=== PATIENT | female | born 1970 | race Caucasian/White ===

== ENCOUNTER 2019-11-05 14:41 | Observation (INO) | payer BC ==
--- OUTSIDE RECORDS SUMMARY | 2019-11-05 14:44 | XMS REPORT ---
:1970 [facility] Address [address] [place] [address] Dr. Phillips [address] [place] [id number] Care Team Providers Name Role Phone Unavailable Unavailable Unavailable Problems This patient has no known problems. Allergies, Adverse Reactions, Alerts This patient has no known allergies or adverse reactions. Medications This patient has no known medications.
--- NOTE | 2019-11-05 15:10 | RAD REPORT ---
EXAM DESCRIPTION: CT - Ct Stroke Brain Wo Cont - 11/05/2019 3:03 pm CLINICAL HISTORY: NUMBNESS TO RT SIDE TODAY -- HEADACHE YESTERDAY Headache, drowsiness, CVA symptomology COMPARISON: No comparisons TECHNIQUE: All CT scans are performed using dose optimization technique as appropriate and may inclu de automated exposure control or mA/KV adjustment according to patient size. FINDINGS: No intracranial hemorrhage, hydrocephalus or extra-axial fluid collection.No areas of brai n edema or evidence of midline shift. The paranasal sinuses and mastoids are clear. The calvarium is intact. IMPRESSION: No acute intracranial abnormality. The findings were discussed with Dr. Brown in the ER On 11/05/2019 at 3:05 p.m. by telephone.
[2019-11-05] MEDS ORDERED: ASPIRIN 81 MG CHEWABLE TABLET ONE (15:18)
[2019-11-05 15:20] LABS: Basophils % 1.1 % (0-1.3); Hematocrit 48.8 % (36.0-45.0); Lymphocytes % 31.1 % (15.3-44.8); MPV 8.3 fL (7.6-11.3); RBC Red Blood Cell Count 5.43 M/uL (3.86-4.86)
[2019-11-05] MEDS ORDERED: LABETALOL 20 MG/4ML SYRINGE IV ONE (15:26)
[2019-11-05 15:28] LABS: Protime INR 0.91
[2019-11-05 15:34] LABS: Potassium 4.3 mmol/L (3.5-5.1)
[2019-11-05 16:56] LABS: ALT/SGPT 47 U/L (12-78); AST/SGOT 23 U/L (15-37); Albumin 4.4 g/dL (3.4-5.0); Alkaline Phosphatase 75 U/L (45-117); Bilirubin Direct < 0.1 mg/dL (0-0.2); Bilirubin Total 0.3 mg/dL (0.2-1.0); Magnesium 2.1 mg/dL (1.8-2.4); NT PRO-BNP 40 pg/mL (<125); Protein, Total 8.1 g/dL (6.4-8.2); Troponin (Emerg Dept Use Only) < 0.02 ng/mL (0.0-0.045)
--- NOTE | 2019-11-05 17:18 | RAD REPORT ---
EXAM DESCRIPTION: RAD - Chest Single View - 11/05/2019 4:50 pm CLINICAL HISTORY: stroke protocol Chest pain. COMPARISON: No comparisons FINDINGS: Portable technique limits examination quality. Mild interstitial pulmonary edema suspected. The heart is normal in size. No displaced fractures.
--- NOTE | 2019-11-05 17:27 | RAD REPORT ---
EXAM DESCRIPTION: US - Renal Ultrasound-Complete - 11/05/2019 4:42 pm CLINICAL HISTORY: sign htn Flank pain COMPARISON: No comparisons FINDINGS: Both kidneys are normal in size, shape and echotexture. The right kidney measures 11.2 x 5.0 x 5.0 cm. No hydronephrosis, focal mass or perinephric fluid. The left kidney measures 11.5 x 5.2 x 4.9 cm. No hydronephrosis, focal mass or perinephric fluid. 14 mm benign cyst is noted left kidney. The urinary bladder is incompletely distended without gross abnormality seen. IMPRESSION: Unremarkable renal sonogram.
--- NOTE | 2019-11-05 18:28 | EDPHYS ---
Physician Documentation [facility] Name: Aniyah Case Age: 49 yrs Sex: Female : 1970 Arrival Date: 11/05/2019 Time: 14:47 Bed 13 Private MD: Roc Dickerson C ED Physician Harley Brown HPI: 11/05 15:31 This 49 yrs old Unknown Female presents to ER via Ambulatory with complaints of snw TINGLING ON RT SIDE FACE ARM. 15:31 The patient complains of pain to the top of head and forehead. The patient describes snw the headache as a pressure. Onset: The symptoms/episode began/occurred suddenly, at 10:00. Associated signs and symptoms: Pertinent positives: paresthesias. Severity of symptoms: At its worst the pain was moderate, severe. Headache History: Denies prior headaches. The symptoms are alleviated by nothing. The patient has not experienced similar symptoms in the past. It is unknown whether or not the patient has recently seen a physician, sees Dr Dickerson. 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 - Coronavirus screen:: The patient has NOT traveled to [place], [place], or [place] in the past 14 days. - Social history:: Smoking status: Patient/guardian denies using. - Ebola Screening: : Patient negative for fever greater than or equal to 101.5 degrees Fahrenheit, and additional compatible Ebola Virus Disease symptoms Patient denies exposure to infectious person. ROS: 15:29 Constitutional: Negative for fever, chills, and weight loss, Eyes: Negative for injury, snw pain, redness, and discharge, ENT: Negative for injury, pain, and discharge, Neck: Negative for injury, pain, and swelling. 15:29 Respiratory: Negative for shortness of breath, cough, wheezing, and pleuritic chest pain, Abdomen/GI: Negative for abdominal pain, nausea, vomiting, diarrhea, and constipation, Back: Negative for injury and pain, : Negative for injury, bleeding, discharge, and swelling, MS/Extremity: Negative for injury and deformity, Skin: Negative for injury, rash, and discoloration. 15:29 Cardiovascular: Positive for chest pain, on , resolved post NTG (not pt's rx). 15:29 Neuro: Positive for headache, tingling, Negative for altered mental status, gait disturbance, loss of consciousness, visual changes, weakness. Exam: 15:22 Constitutional: This is a well developed, well nourished patient who is awake, alert, snw and in no acute distress. Head/Face: Normocephalic, atraumatic. Eyes: Pupils equal round and reactive to light, extra-ocular motions intact. Lids and lashes normal. Conjunctiva and sclera are non-icteric and not injected. Cornea within normal limits. Periorbital areas with no swelling, redness, or edema. ENT: Nares patent. No nasal discharge, no septal abnormalities noted. Tympanic membranes are normal and external auditory canals are clear. Oropharynx with no redness, swelling, or masses, exudates, or evidence of obstruction, uvula midline. Mucous membranes moist. Neck: Trachea midline, no thyromegaly or masses palpated, and no cervical lymphadenopathy. Supple, full range of motion without nuchal rigidity, or vertebral point tenderness. No Meningismus. Chest/axilla: Normal chest wall appearance and motion. Nontender with no deformity. No lesions are appreciated. Respiratory: Lungs have equal breath sounds bilaterally, clear to auscultation and percussion. No rales, rhonchi or wheezes noted. No increased work of breathing, no retractions or nasal flaring. Abdomen/GI: Soft, non-tender, with normal bowel sounds. No distension or tympany. No guarding or rebound. No evidence of tenderness throughout. Back: No spinal tenderness. No costovertebral tenderness. Full range of motion. 15:22 Skin: Warm, dry with normal turgor. Normal color with no rashes, no lesions, and no evidence of cellulitis. MS/ Extremity: Pulses equal, no cyanosis. Neurovascular intact. Full, normal range of motion. Neuro: Awake and alert, GCS 15, oriented to person, place, time, and situation. Cranial nerves II-XII grossly intact. Motor strength 5/5 in all extremities. Sensory grossly intact. Cerebellar exam normal. Normal gait. Psych: Awake, alert, with orientation to person, place and time. Behavior, mood, and affect are within normal limits. 15:22 Cardiovascular: Rate: tachycardic, Rhythm: regular, Pulses: no pulse deficits are appreciated, Heart sounds: normal. Vital Signs: 14:49 BP 210 / 126; Pulse 112; Resp 16; Temp 97.9; Pulse Ox 100% on R/A; Weight 90.72 kg; hb Height 5 ft. 7 in. (170.18 cm); Pain 8/10; 15:30 BP 138 / 87; Pulse 89; Resp 18; Pulse Ox 97% ; wh 16:30 BP 138 / 71; Pulse 97; Resp 18; Pulse Ox 97% ; wh 18:30 BP 140 / 83; Pulse 70; Resp 18; Pulse Ox 95% on R/A; wh 19:30 BP 134 / 89; Pulse 69; Resp 18; Pulse Ox 96% ; wh 14:49 Body Mass Index 31.32 (90.72 kg, 170.18 cm) hb NIH Stroke Scale Scores: 14:59 NIHSS Score: 1 snw 15:05 NIHSS Score: 0 wh [place] Coma Score: 17:15 Eye Response: spontaneous(4). Verbal Response: oriented(5). Motor Response: obeys snw commands(6). Total: 15. 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 snw 15:20 Patient medically screened. snw 17:15 Data reviewed: vital signs, nurses notes. Data interpreted: Pulse oximetry: on room air snw is 97 %. Interpretation: normal. Counseling: I had a detailed discussion with the patient and/or guardian regarding: the historical points, exam findings, and any diagnostic results supporting the discharge/admit diagnosis, the presence of at least one elevated blood pressure reading (>120/80) during this emergency department visit, lab results, radiology results, the need for further work-up and treatment in the hospital. Physician consultation: Simba Vallejo MD was called at 17:15, regarding admission. 18:27 Physician consultation: was contacted at 18:27. snw 11/05 14:57 Order name: Basic Metabolic Panel ss 11/05 14:57 Order name: CBC with Diff ss 01/25 14:57 Order name: Protime (+inr) 11/05 14:57 Order name: Ptt, Activated ss 11/05 15:13 Order name: Basic Metabolic Panel; Complete Time: 15:57 EDMS 11/05 15:13 Order name: CBC with Automated Diff; Complete Time: 15:57 EDMS 11/05 15:13 Order name: Protime (+INR); Complete Time: 15:57 ED11/05 15:13 Order name: PTT, Activated Partial Thromb; Complete Time: 15:57 EDMS 11/05 15:19 Order name: Glucose, Ancillary Testing; Complete Time: 15:20 EDDE 11/05 16:19 Order name: LFT's; Complete Time: 16:59 [facility] 11/05 16:19 Order name: Magnesium; Complete Time: 16:59 [facility] 11/05 16:19 Order name: NT PRO-BNP; Complete Time: 16:59 [facility] 11/05 16:19 Order name: Troponin (emerg Dept Use Only); Complete Time: 16:59 [facility] 11/05 14:57 Order name: Stroke CXR 1 View; Complete Time: 17:28 11/05 14:57 Order name: EKG; Complete Time: 16:02 11/05 14:57 Order name: Accucheck; Complete Time: 15:32 11/05 14:57 Order name: Cardiac monitoring; Complete Time: 15:14 11/05 14:57 Order name: EKG - Nurse/Tech; Complete Time: 15:14 11/05 14:57 Order name: IV Saline Lock; Complete Time: 15:14 11/05 14:57 Order name: Labs collected and sent; Complete Time: 15:14 11/05 14:57 Order name: NPO; Complete Time: 15:14 11/05 14:57 Order name: O2 Per Protocol; Complete Time: 15:14 11/05 14:57 Order name: O2 Sat Monitoring; Complete Time: 15:18 11/05 14:57 Order name: Stroke Swallow Screen; Complete Time: 15:18 11/05 15:01 Order name: Ct Stroke Brain Wo Cont; Complete Time: 15:17 EDDE 11/05 15:17 Order name: Misc. Order: Repeat labetolol 5mg iv post 5 min if SBP > 170; Complete snw Time: 15:53 11/05 15:18 Order name: US Rp Exam Complete; Complete Time: 17:28 snw Administered Medications: 15:30 Drug: Labetalol 5 mg {Note: BP 185/102 HR 100.} Route: IVP; Infused Over: 2 mins; Site: right antecubital; 19:43 Follow up: Response: No adverse reaction; Blood pressure is lowered 15:31 Drug: Aspirin Chewable Tablet 324 mg Route: PO; 19:43 Follow up: Response: No adverse reaction Disposition: 11/05/19 18:26 Hospitalization ordered by Roc Dickerson for Observation. Preliminary diagnosis are Hypertensive heart disease, Paresthesia of skin. - Bed requested for Telemetry/MedSurg (observation). - Status is Observation. - Condition is Stable. - Problem is new. - Symptoms have improved. UTI on Admission? No NIH Stroke Scale - NIH Stroke Score Date: 11/05/2019 Time: 14:59 Total Score = 1 1a. Level of Consciousness (LOC) - 0(Alert) 1b. Level of Consciousness (LOC) (Year \T\ Age) - 0(Both) 1c. LOC Commands (Open \T\ Closes Eyes/Bridge Maintainer) - 0(Both) 2. Best Gaze (Lateral Gaze Paresis) - 0(Normal) 3. Visual Field Loss - 0(No visual loss) 4. Facial Palsy - 0(Normal) 5a. Left Arm: Motor (10-second hold) - 0(No drift) 5b. Right Arm: Motor (10-second hold) - 0(No drift) 6a. Left Leg: Motor (5-second hold - always test supine) - 0(No drift) 6b. Right Leg: Motor (5-second hold - always test supine) - 0(No drift) 7. Limb Ataxia (finger/nose \T\ heel/wade - test with eyes open) - 0(Absent) 8. Sensory Loss (pinprick arms/legs/face) - 1(Mild to moderate loss) 9. Best Language: Aphasia (description/naming/reading) - 0(No aphasia) 10. Dysarthria (speech clarity - read or repeat words) - 0(Normal) 11. Extinction and Inattention (visual/tactile/auditory/spatial/personal) - 0(No abnormality) Initials: [facility] NIH Stroke Scale - NIH Stroke Score Date: 11/05/2019 Time: 15:05 Total Score = 0 1a. Level of Consciousness (LOC) - 0(Alert) 1b. Level of Consciousness (LOC) (Year \T\ Age) - 0(Both) 1c. LOC Commands (Open \T\ Closes Eyes/Bridge Maintainer) - 0(Both) 2. Best Gaze (Lateral Gaze Paresis) - 0(Normal) 3. Visual Field Loss - 0(No visual loss) 4. Facial Palsy - 0(Normal) 5a. Left Arm: Motor (10-second hold) - 0(No drift) 5b. Right Arm: Motor (10-second hold) - 0(No drift) 6a. Left Leg: Motor (5-second hold - always test supine) - 0(No drift) 6b. Right Leg: Motor (5-second hold - always test supine) - 0(No drift) 7. Limb Ataxia (finger/nose \T\ heel/wade - test with eyes open) - 0(Absent) 8. Sensory Loss (pinprick arms/legs/face) - 0(Normal) 9. Best Language: Aphasia (description/naming/reading) - 0(No aphasia) 10. Dysarthria (speech clarity - read or repeat words) - 0(Normal) 11. Extinction and Inattention (visual/tactile/auditory/spatial/personal) - 0(No abnormality) Initials: Addendum: 11/06/2019 21:18 Co-signature as Attending Physician, Harley Brown MD I agree with the [facility] assessment and plan of care. Signatures: Dispatcher [employer] [facility] Harley Brown MD MD [facility] Amairani Martini, STIFF STRAW HAT WASHER-C STIFF STRAW HAT WASHER-Csnw Sofie Russo RN RN ss Mai Lindquist RN RN Michelle Sorensen, Kelsie Huerta RN Corrections: (The following items were deleted from the chart) 11/05 16:06 16:02 CT-STROKE BRAIN W/O CONTRAST+CT.RAD.BRZ ordered. [facility] 19:25 18:26 Hospitalization Ordered by Roc Dickerson MD for Observation. Preliminary cg diagnosis is Hypertensive heart disease; Paresthesia of skin. Bed requested for Telemetry/MedSurg (observation). Status is Observation. Condition is Stable. Problem is new. Symptoms have improved. UTI on Admission? No. snw 19:58 19:25 11/05/2019 18:26 Hospitalization Ordered by A Jayla CRANE for Observation. wh Preliminary diagnosis is Hypertensive heart disease; Paresthesia of skin. Bed requested for Telemetry/MedSurg (observation). Status is Observation. Condition is Stable. Problem is new. Symptoms have improved. UTI on Admission? No. cg
--- NOTE | 2019-11-05 18:28 | ER ---
Nurse's Notes [facility] Name: Aniyah Case Age: 49 yrs Sex: Female : 1970 Arrival Date: 11/05/2019 Time: 14:47 Bed 13 Private MD: Roc Dickerson C Diagnosis: Hypertensive heart disease;Paresthesia of skin Presentation: 11/05 14:49 Presenting complaint: High home BP readings x 3 days. 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 14:49 Method Of Arrival: Ambulatory hb 14:50 Transition of care: patient was not received from another setting of care. hb 14:50 Onset of symptoms was November 02, 2019. Risk Assessment: Do you want to hurt yourself hb or someone else? Patient reports no desire to harm self or others. Initial Sepsis Screen: Does the patient meet any 2 criteria? No. Patient's initial sepsis screen is negative. Does the patient have a suspected source of infection? No. Patient's initial sepsis screen is negative. Care prior to arrival: None. 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 - Coronavirus screen:: The patient has NOT traveled to [place], [place], or [place] in the past 14 days. - Social history:: Smoking status: Patient/guardian denies using. - Ebola Screening: : Patient negative for fever greater than or equal to 101.5 degrees Fahrenheit, and additional compatible Ebola Virus Disease symptoms Patient denies exposure to infectious person. Screenin:00 Abuse screen: Denies threats or abuse. Denies injuries from another. Nutritional wh screening: No deficits noted. Tuberculosis screening: No symptoms or risk factors identified. Fall Risk None identified. 15:05 VAN Screening: Arm Drift: Patient shows no arm weakness. Visual Disturbance: No visual wh disturbance noted. Aphasia: No aphasia noted. Neglect: No neglect noted. Assessment: 14:53 Reassessment: CODE STROKE CALLED, PT TO CT VIA WHEELCHAIR WITH ALESHA CELAYA. hb 14:59 Reassessment: Pt to bed 13, Amairani EMERGENCY SERVICES DISPATCHER at bedside. hb 15:00 General: Appears in no apparent distress. Behavior is calm, cooperative, appropriate wh for age. Pain: Denies pain. Neuro: Level of Consciousness is awake, alert, obeys commands, Oriented to person, place, time, situation, Appropriate for age Civil Lawyer are equal bilaterally Moves all extremities. Gait is steady, Speech is normal, Facial symmetry appears normal, Pupils are PERRLA, Intact Reports tingling on face. Cardiovascular: Heart tones S1 S2 Capillary refill < 3 seconds. Respiratory: Airway is patent Respiratory effort is even, unlabored, Respiratory pattern is regular, symmetrical, Breath sounds are clear bilaterally. GI: Abdomen is flat, non-distended. : No signs and/or symptoms were reported regarding the genitourinary system. EENT: No signs and/or symptoms were reported regarding the EENT system. Derm: Skin is intact, is healthy with good turgor, Skin is pink, warm \T\ dry. normal. Musculoskeletal: Circulation, motion, and sensation intact. 15:04 Reassessment: 20g RAC, blood drawn and sent to lab [facility] stroke sticker, outside lab notified. 15:05 Reassessment: BGL 111. hb 16:00 Reassessment: Patient appears in no apparent distress at this time. No changes from previously documented assessment. Patient and/or family updated on plan of care and expected duration. Pain level reassessed. Patient is alert, oriented x 3, equal unlabored respirations, skin warm/dry/pink. Patient states feeling better. 17:01 Reassessment: Patient appears in no apparent distress at this time. No changes from previously documented assessment. Patient and/or family updated on plan of care and expected duration. Pain level reassessed. Patient is alert, oriented x 3, equal unlabored respirations, skin warm/dry/pink. Patient states feeling better. 18:20 Reassessment: Patient appears in no apparent distress at this time. No changes from previously documented assessment. Patient and/or family updated on plan of care and expected duration. Pain level reassessed. Patient is alert, oriented x 3, equal unlabored respirations, skin warm/dry/pink. Provider at bedside explaining POC need for admit. 19:39 Reassessment: Patient appears in no apparent distress at this time. No changes from previously documented assessment. Patient and/or family updated on plan of care and expected duration. Pain level reassessed. Patient is alert, oriented x 3, equal unlabored respirations, skin warm/dry/pink. Patient states feeling better. Vital Signs: 14:49 BP 210 / 126; Pulse 112; Resp 16; Temp 97.9; Pulse Ox 100% on R/A; Weight 90.72 kg; hb Height 5 ft. 7 in. (170.18 cm); Pain 8/10; 15:30 BP 138 / 87; Pulse 89; Resp 18; Pulse Ox 97% ; wh 16:30 BP 138 / 71; Pulse 97; Resp 18; Pulse Ox 97% ; wh 18:30 BP 140 / 83; Pulse 70; Resp 18; Pulse Ox 95% on R/A; wh 19:30 BP 134 / 89; Pulse 69; Resp 18; Pulse Ox 96% ; 14:49 Body Mass Index 31.32 (90.72 kg, 170.18 cm) hb [place] Coma Score: 17:15 Eye Response: spontaneous(4). Verbal Response: oriented(5). Motor Response: obeys snw commands(6). Total: 15. NIH Stroke Scale Scores: 14:59 NIHSS Score: 1 snw 15:05 NIHSS Score: 0 ED Course: 14:47 Patient arrived in ED. es 14:47 Roc Dickerson MD is Private Physician. es 14:57 Kelsie Ballesteros is Primary Nurse. 15:00 Amairani Martini [facility] snw 15:00 Harley Brown MD is Attending Physician. snw 15:00 Patient has correct armband on for positive identification. Bed in low position. Call light in reach. Side rails up X 1. color television console monitor on. Pulse ox on. NIBP on. 15:02 Ct Stroke Brain Wo Cont In Process Unspecified. EDMS 15:04 Inserted saline lock: 20 gauge in right antecubital area, using aseptic technique. hb Blood collected. 15:12 Triage completed. hb 15:12 Arm band placed on. hb 16:42 US Rp Exam Complete In Process Unspecified. EDMS 16:50 Stroke CXR 1 View In Process Unspecified. EDMS 18:24 Roc Dickerson MD is Hospitalizing Provider. snw 19:47 No provider procedures requiring assistance completed. Patient admitted, IV remains in place. Administered Medications: 15:30 Drug: Labetalol 5 mg {Note: BP 185/102 HR 100.} Route: IVP; Infused Over: 2 mins; Site: right antecubital; 19:43 Follow up: Response: No adverse reaction; Blood pressure is lowered 15:31 Drug: Aspirin Chewable Tablet 324 mg Route: PO; 19:43 Follow up: Response: No adverse reaction Outcome: 18:26 Decision to Hospitalize by Provider. snw 19:47 Admitted to Med/surg accompanied by tech, family with patient, via wheelchair, room wh 220, with chart, Report called to Migdalia Salazar RN 19:47 Condition: stable 19:47 Instructed on the need for admit. 19:58 Patient left the ED. NIH Stroke Scale - NIH Stroke Score Date: 11/05/2019 Time: 14:59 Total Score = 1 1a. Level of Consciousness (LOC) - 0(Alert) 1b. Level of Consciousness (LOC) (Year \T\ Age) - 0(Both) 1c. LOC Commands (Open \T\ Closes Eyes/Adobe Maker) - 0(Both) 2. Best Gaze (Lateral Gaze Paresis) - 0(Normal) 3. Visual Field Loss - 0(No visual loss) 4. Facial Palsy - 0(Normal) 5a. Left Arm: Motor (10-second hold) - 0(No drift) 5b. Right Arm: Motor (10-second hold) - 0(No drift) 6a. Left Leg: Motor (5-second hold - always test supine) - 0(No drift) 6b. Right Leg: Motor (5-second hold - always test supine) - 0(No drift) 7. Limb Ataxia (finger/nose \T\ heel/wade - test with eyes open) - 0(Absent) 8. Sensory Loss (pinprick arms/legs/face) - 1(Mild to moderate loss) 9. Best Language: Aphasia (description/naming/reading) - 0(No aphasia) 10. Dysarthria (speech clarity - read or repeat words) - 0(Normal) 11. Extinction and Inattention (visual/tactile/auditory/spatial/personal) - 0(No abnormality) Initials: [facility] NIH Stroke Scale - NIH Stroke Score Date: 11/05/2019 Time: 15:05 Total Score = 0 1a. Level of Consciousness (LOC) - 0(Alert) 1b. Level of Consciousness (LOC) (Year \T\ Age) - 0(Both) 1c. LOC Commands (Open \T\ Closes Eyes/Adobe Maker) - 0(Both) 2. Best Gaze (Lateral Gaze Paresis) - 0(Normal) 3. Visual Field Loss - 0(No visual loss) 4. Facial Palsy - 0(Normal) 5a. Left Arm: Motor (10-second hold) - 0(No drift) 5b. Right Arm: Motor (10-second hold) - 0(No drift) 6a. Left Leg: Motor (5-second hold - always test supine) - 0(No drift) 6b. Right Leg: Motor (5-second hold - always test supine) - 0(No drift) 7. Limb Ataxia (finger/nose \T\ heel/wade - test with eyes open) - 0(Absent) 8. Sensory Loss (pinprick arms/legs/face) - 0(Normal) 9. Best Language: Aphasia (description/naming/reading) - 0(No aphasia) 10. Dysarthria (speech clarity - read or repeat words) - 0(Normal) 11. Extinction and Inattention (visual/tactile/auditory/spatial/personal) - 0(No abnormality) Initials: Signatures: Dispatcher [employer] Amairani Nielsen, TOMASAC SAFETY TECH-CsnSandy Tomas Heather, RN RN Kelsie Ballesteros Corrections: (The following items were deleted from the chart) 15:10 14:53 BP 210 / 126; Pulse 112bpm; Resp 16bpm; Pulse Ox 100% RA; Temp 97.9F; hb 90.72 kg; Height 5 ft. 7 in.; BMI: 31.3; Pain 8/10; hb 15:12 14:49 Presenting complaint: High home BP readings x 3 days. Today home BP hb 170/114 and headache, tingling right face and right arm started 15 min NETWORK MANAGER. hb 15:13 14:59 Reassessment: Pt to bed Amairani Alonzo EMERGENCY SERVICES DISPATCHER at bedside hb hb 17:48 17:01 Reassessment: Patient appears in no apparent distress at this time. No wh changes from previously documented assessment. Patient and/or family updated on plan of care and expected duration. Pain level reassessed. Patient is alert, oriented x 3, equal unlabored respirations, skin warm/dry/pink. wh
[2019-11-05] MEDS ORDERED: ACETAMINOPHEN 500 MG TAB PO PRN (20:08)
[2019-11-05] MEDS ORDERED: METOPROLOL XL 25 MG TAB PO SCH (21:00)
[2019-11-05 21:17] VITALS: BMI 32.3
[2019-11-06 01:00] VITALS: TEMP 97.2
[2019-11-06 03:26] VITALS: O2SAT 98
[2019-11-06 05:55] LABS: Urine Appearance CLEAR; Urine Bilirubin NEGATIVE (NEG); Urine Blood NEGATIVE (NEG); Urine Color YELLOW; Urine Glucose NEGATIVE (NEG); Urine Protein NEGATIVE (NEG); Urine Specific Gravity 1.015 (1.005-1.030); Urine Urobilinogen 0.2 mg/dL (0.2-1.0); Urine pH 5.5 (5.0-7.0)
[2019-11-06 05:59] LABS: Urine Microscopic Reflex NO UMIC
[2019-11-06 06:47] LABS: Absolute Lymphocytes (CBC) 2.9 K/uL (0.7-4.9); Basophils % 0.7 % (0-1.3); Hematocrit 44.8 % (36.0-45.0); Lymphocytes % 31.6 % (15.3-44.8); MPV 8.3 fL (7.6-11.3); RBC Red Blood Cell Count 4.91 M/uL (3.86-4.86)
[2019-11-06 07:05] LABS: Potassium 4.1 mmol/L (3.5-5.1)
[2019-11-06 08:34] VITALS: BP 120/80
[2019-11-06] MEDS ORDERED: ASPIRIN EC 81 MG TAB PO SCH (09:00)
--- NOTE | 2019-11-06 09:43 | EKG ---
Test Date: 2019-11-05 Test Time: 15:13:31 Conservation Or Heritage Architect: KALA MEASUREMENT RESULTS: Intervals: Rate: 102 OK: 144 QRSD: 86 QT: 356 QTc: 463 [place]: P: 62 OK: 144 QRS: 70 T: 33 INTERPRETIVE STATEMENTS: Sinus tachycardia Otherwise normal ECG No previous ECG available for comparison Electronically Signed On 11-06-19 09:42:34 MILKING WORKER by Terrence Daniel
[2019-11-06] MEDS ORDERED: METOPROLOL XL 25 MG TAB PO ONE (10:30)
--- NOTE | 2019-11-06 21:50 | SS ---
Date of Discharge: 11/06/2019 Chief Complaint: High blood pressure, tingling, numbness. History Of Present Illness: This is a 49-year-old female patient, who has had high blood pressure in the past, but not on any medication. Her blood pressure, she checks it frequently at work and her s ystolic blood pressure is anywhere from 120 to 140, diastolic between 70 to 80. Patient reported gabrielle t this week on while she was at work, she started to have some headache and recorded her blo od pressure at work was 170/110 or so and had some chest pain with that. 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 Afte r nitroglycerin tablet, her chest pain subsided and her blood pressure came down to normal. Thursday, she felt fine and yesterday, her blood pressure started to go up again and this time, she had some ti ngling sensation on the right side of the face. She came into emergency room. After she was evaluat ed, she was admitted to the hospital. She received labetalol and metoprolol yesterday. Overnight, h er condition has remained stable. She has not had any recurrence of chest pain or tingling sensation . This morning, she is feeling much better. Allergies: TO BUPROPION, CAUSING ANXIETY AND OXYCODONE, CAUSING RASH. Home Medications: She does not take any medications at home. Past Medical History: Significant for hypertension and mixed hyperlipidemia. Past Surgical History: Cholecystectomy and arthroscopic knee surgery. Family History: Father, COPD, coronary artery disease, hypertension. Mother, lung cancer and COPD. Sister with asthma. Social History: Smokes about half pack per day and has 2 to 3 drinks on a daily basis. 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 Cardiovascular: As mentioned above. All other systems reviewed and negative. Physical Examination: Vital Signs: Her last blood pressure this morning was 120/80, pulse 68, respiratory rate 20, tempera ture 97.2, oxygen saturation 97%. Height is 5 feet 7 inches, weight 206 pounds. Her initial blood p ressure was 210/126 with pulse rate 112. This was yesterday afternoon when she came in. General: Awake, alert, oriented, not in distress. HEENT: Head atraumatic, normocephalic. Conjunctivae nonerythematous. Sclerae white. Mouth, no thr ush or edema noted. Ears/Nose, no mass, lesion, discharge noted. Neck: Supple. No JVD, lymph nodes, bruit, thyromegaly noted. Lungs: Bilateral good equal air entry. Clear to auscultation. No rhonchi. No rales. Heart: Normal heart sounds, no murmur or gallop. Abdomen: Soft, bowel sounds normal. No guarding, rigidity, tenderness, mass, hepatosplenomegaly, dis tention, or bruit noted. Extremities: No leg edema. No calf tenderness. Skin: No rash, ulcer, cellulitis. Lymphatics: No lymph node enlargement in neck, supraclavicular, infraclavicular region. Neuro: No focal neurological deficit. Chest: Unremarkable. External Genitalia: Deferred. Rectal: Deferred. Laboratory Data: Yesterday, white count 12.9, hemoglobin 16.3, platelets 286. Today, white count 9. 3, hemoglobin 14.9, platelets . Yesterday, sodium 142, potassium 4.3, chloride 108, bicarb 29, BUN 14, creatinine 1.09, glucose 98. Liver function tests unremarkable. Troponin less than 0.0 2 x3. Today, sodium 140, potassium 4.1, chloride 109, bicarb 25, BUN 14, creatinine 0.83, glucose 90 . EKG, sinus tachycardia, no acute ST-T changes. CAT scan of the brain was negative for any acute i ntracranial changes. Chest x-ray, no acute cardiopulmonary changes, except increased lung markings. Renal ultrasound was negative, except 14 mm benign cyst in the left kidney. Hospital Course: After I evaluated the patient, I determined that the patient was medically stable f or discharge and we did talk about importance to quit smoking completely and also she was advised to reduce her alcohol intake to 1 glass of red wine a day and that is 4-ounce glass. She prefers to see school office manager in [place], Dr. Fonseca and she was advised to follow up with him on outpatient basis. Discharge Medications/instructions: 1.Take metoprolol succinate 25 mg 1 tablet by mouth daily in morning. Take amlodipine 5 mg 1 tablet by mouth daily in evening. Patient to check blood pressure 3 to 4 times a day and if the systolic b lood pressure is higher than 140, then she may use second dose of the amlodipine 5 mg at that time fo r that particular day. 2.Follow up at my office on 11/10/2019 and patient to call for appointment. 3.Patient to follow up with the school office manager in next 2 weeks. Final Diagnoses: 1.Hypertensive emergency, resolved. 2.Mixed hyperlipidemia. 3.Smoking. CHAYA/MODL Voice ID: [id number] Report ID: [id number]
== END 2019-11-06 10:59 | disposition home or self-care (01) ==
LOC: ER 14:41 → ERHOLD 18:28 → 2ND 19:46
PROVIDERS: ADMIT Internal Medicine; ATTEND Internal Medicine
DX: I16.1 Hypertensive emergency (principal); E78.2 Mixed hyperlipidemia; F17.210 Nicotine dependence, cigarettes, uncomplicated
CPT/HCPCS: 36415; 70450; 71045; 76770; 80048; 80076; 81003; 82947; 83735; 83880; 84484; 85025; 85610; 85730; 93005; 96374; 99285; G0378

== ENCOUNTER 2019-11-17 12:21 | Observation (INO) | payer BC ==
--- OUTSIDE RECORDS SUMMARY | 2019-11-17 12:29 | XMS REPORT ---
:1970 [facility] Address [address] [place] [address] Dr. Phillips [address] [place] [id number] Care Team Providers Name Role Phone Unavailable Unavailable Unavailable Problems This patient has no known problems. Allergies, Adverse Reactions, Alerts This patient has no known allergies or adverse reactions. Medications This patient has no known medications.
[2019-11-17] MEDS ORDERED: ASPIRIN EC 81 MG TAB PO ONE (12:32)
[2019-11-17] MEDS ORDERED: ENOXAPARIN 80 MG/0.8 ML SQ ONE (12:32)
[2019-11-17 13:00] LABS: Absolute Lymphocytes (CBC) 3.1 K/uL (0.7-4.9); Basophils % 1.1 % (0-1.3); Hematocrit 48.1 % (36.0-45.0); Lymphocytes % 29.1 % (15.3-44.8); MPV 8.3 fL (7.6-11.3)
[2019-11-17] MEDS ORDERED: LOSARTAN/HCTZ 50-12.5 PO ONE (13:00)
[2019-11-17 13:19] LABS: ALT/SGPT 47 U/L (12-78); AST/SGOT 22 U/L (15-37); Albumin 4.2 g/dL (3.4-5.0); Alkaline Phosphatase 67 U/L (45-117); BUN Blood Urea Nitrogen 12 mg/dL (7-18); Bicarbonate 28 mmol/L (21-32); Bilirubin Total 0.3 mg/dL (0.2-1.0); CKMB Creatine Kinase MB 3.5 ng/mL (0.3-3.6); Creatine Phosphokinase 184 U/L (26-192); Glucose Level 90 mg/dL (74-106); Magnesium 2.1 mg/dL (1.8-2.4); Potassium 3.8 mmol/L (3.5-5.1); Protein, Total 8.1 g/dL (6.4-8.2); Sodium Level 141 mmol/L (136-145); Troponin I < 0.02 ng/mL (0.0-0.045)
[2019-11-17 13:53] VITALS: BMI 32.5
[2019-11-17] MEDS ORDERED: POTASSIUM CL SA 10 MEQ TAB PO ONE (16:00)
[2019-11-17] MEDS ORDERED: AMLODIPINE 10 MG TAB PO SCH (21:00)
--- NOTE | 2019-11-17 21:33 | CON ---
History Of Present Illness: Ms. Diehl is 49. For several weeks, she has been aware that her blood pr essure is high. She is also having chest pain that radiates to the jaw, neck, not necessarily exerti onal. Most of the spells occur at rest. Several medications have been tried, but her present blood pressure control is suboptimal. She has been on amlodipine 10 and metoprolol 50. No previous histor y of myocardial infarction, stroke, diabetes, or hypertension before the past 2 weeks. No vascular s urgery. She is multigravid. She has had gallbladder surgery. She reports drug allergies to include bupropion and oxycodone. She is a regular cigarette smoker, but agrees that she needs to quit. Physical Examination: General: She is 5 feet 7 inches, 208 pounds. Blood pressure 162/98, pulse 76. HEENT: Normal carotids, no bruit. Lungs: Clear. Cardiac: Normal. Abdomen: Soft. Extremities: Normal. Diagnostic Studies: Electrocardiogram dated November 05, 2019, showed sinus tachycardia, otherwise it is normal. Plan: I think the patient should have a pharmacologic nuclear stress test tomorrow. Her echocardiog colby is normal and we will see if we have any reason to investigate further with a cardiac catheteriza tion after that. SHAY/JOSE Voice ID: [id number] Report ID: [id number]
[2019-11-18 02:02] VITALS: O2SAT 98
--- NOTE | 2019-11-18 04:31 | HP ---
Date of Admission: 11/17/2019 Chief Complaint: High blood pressure and neck pain. History Of Present Illness: This is a 49-year-old very pleasant female patient who recently got started on antihypertensive medication for high blood pressure problem and we have made adjustment on her antihypertensive medication within last week or so. Her blood pressure is better than before, but still higher than normal. So today, when she came into office to talk to me about her blood pressure, she informed me that she is just not feeling good lately, and today, while she was at work, she started to have some pain in her neck, describing more like tightness type of discomfort in her neck, associated with high blood pressure, and she was sent home from work, and she came to office to talk to me. After I talked to her, decision was made to admit her to hospital for further cardiac workup. She denies any heaviness pressure type of feeling in her chest. No shortness of breath. No sweating. No tingling, numbness of hands. Allergies: BUPROPION CAUSING ANXIETY AND OXYCODONE CAUSING RASH. Medications: Amlodipine 10 mg at bedtime, metoprolol succinate 50 mg p.o. daily in the morning. Review of Systems: Cardiovascular: As mentioned above. All other systems reviewed and negative. Family History: Father had COPD, coronary artery disease, hypertension. Mother , lung cancer, COPD. Sister with asthma. Social History: Positive for smoking and uses 2-3 drinks daily. Past Surgical History: Cholecystectomy, arthroscopic knee surgery. Past Medical History: Hypertension, mixed hyperlipidemia. Physical Examination: Vital Signs: Pulse 76, blood pressure 162/98, oxygen saturation 100%, height 5 feet 7 inches, weight 208 pounds. General: Awake, alert, oriented, not in distress. HEENT: Head atraumatic, normocephalic. Conjunctivae nonerythematous. Sclerae white. Mouth, no thrush or edema noted. Ears/Nose, no mass, lesion, discharge noted. Neck: Supple. No JVD, lymph nodes, bruit, thyromegaly noted. Lungs: Bilateral good equal air entry. Clear to auscultation. No rhonchi. No rales. Heart: Normal heart sounds, no murmur or gallop. Abdomen: Soft, bowel sounds normal. No guarding, rigidity, tenderness, mass, hepatosplenomegaly, distention, or bruit noted. Extremities: No leg edema. No calf tenderness. Skin: No rash, ulcer, cellulitis. Lymphatics: No lymph node enlargement in neck, supraclavicular, infraclavicular region. Neuro: No focal neurological deficit. Chest: Unremarkable. External Genitalia: Deferred. Rectal: Deferred. Laboratory Data: White count 10.7, hemoglobin 15.8, platelets 267. Sodium 141 , potassium 3.8, chloride 107, bicarb 28, BUN 12, creatinine 0.84, glucose 90. Liver function tests unremarkable. Troponin less than 0.02. Prior chest x-ray from about a week to 10 days ago, no acute cardiopulmonary changes. Impression: 1. Atypical angina. 2. Hypertension. 3. Mixed hyperlipidemia. Plan: Admit patient to hospital for further evaluation and management of this problem. Patient is appropriate for observation. Consult Cardiology. Home medications will be continued per order. We will start her on losartan/HCT 50/ 12.5 mg p.o. daily. First dose was ordered to be given soon after admission. We will give aspirin, Lovenox per order, and tomorrow morning, patient will have stress test, and I will see her tomorrow for followup. Details and plan of treatment discussed with her. CHAYA/MODL Voice ID: [id number]
[2019-11-18] MEDS ORDERED: REGADENOSON 0.4 MG/5 ML SYR IV ONE (07:40)
--- NOTE | 2019-11-18 08:02 | ECHO ---
HEIGHT: 5 ft 7 in WEIGHT: 208 lb 0 oz DATE OF STUDY: 11/17/[address]: Jules Dickerson MD 2-DIMENSIONAL: YES M.MODE: YES DOPPLER: YES COLOR FLOW: YES TDS: PORTABLE: DEFINITY: BUBBLE STUDY: DIAGNOSIS: ANGINA CARDIAC HISTORY: CATHERIZATION: NO SURGERY: NO PROSTHETIC VALVE: NO PACEMAKER: NO MEASUREMENTS (cm) DIASTOLIC (NORMALS) SYSTOLIC (NORMALS) IVSd 1.0 (0.6-1.2) LA Diam 3.2 (1.9-4.0) LVEF 67% LVIDd 3.7 (3.5-5.7) LVIDs 2.4 (2.0-3.5) %FS 36% LVPWd 1.1 (0.6-1.2) Ao Diam 2.5 (2.0-3.7) 2 DIMENSIONAL ASSESSMENT: RIGHT ATRIUM: NORMAL LEFT ATRIUM: NORMAL RIGHT VENTRICLE: NORMAL LEFT VENTRICLE: NORMAL TRICUSPID VALVE: NORMAL MITRAL VALVE: NORMAL PULMONIC VALVE: NORMAL AORTIC VALVE: NORMAL PERICARDIAL EFFUSION: NONE AORTIC ROOT: NORMAL LEFT VENTRICULAR WALL MOTION: NORMAL DOPPLER/COLOR FLOW: NORMAL COMMENTS: NORMAL 2-DIMENSIONAL ECHOCARDIOGRAM WITH DOPPLER. TECHNOLOGIST: IWONA CALDERON
--- NOTE | 2019-11-18 08:45 | EKG ---
Test Date: 2019-11-17 Test Time: 12:56:51 Spiral Machine Operator: SHARYN MEASUREMENT RESULTS: Intervals: Rate: 73 [place]: 152 QRSD: 90 QT: 404 QTc: 445 [place]: P: 26 [place]: 152 QRS: 38 T: 22 INTERPRETIVE STATEMENTS: Normal sinus rhythm Normal ECG Compared to ECG 11/05/2019 15:13:31 Sinus tachycardia no longer present Electronically Signed On 11-18-19 08:44:55 PROCESS ASSISTANT by Terrence Daniel
[2019-11-18] MEDS ORDERED: ASPIRIN EC 81 MG TAB PO SCH (09:00)
[2019-11-18 10:06] VITALS: TEMP 97.7
--- NOTE | 2019-11-18 10:32 | RAD REPORT ---
EXAM DESCRIPTION: NM - Rest Stress Cardiac Imaging - 11/18/2019 10:08 am CLINICAL HISTORY: Chest pain COMPARISON: None. TECHNIQUE: The patient was administered 10.2 mCi of Tc 99m Sestamibi prior to resting SPECT imaging of the heart. The patient was then administered 30.8 mCi of Tc 99m Sestamibi following exercise or ph armacologic stress. Multiplanar SPECT images were reviewed. FINDINGS: The end diastolic volume is 93 ml, the end systolic volume is 35 ml, and the ejection frac tion is 62 %. No stress-induced ischemic changes identifiable. Diminished activity anterior wall near the septum is not clearly different between rest and stress sequencing. This is probably breast attenuation artifa ct rather than scarring. No other areas of fixed defect identifiable. IMPRESSION: No stress-induced ischemic change. Small focus of diminished activity anterior wall near the apex does not change between rest and stres s imaging. This is favored to be breast attenuation artifact rather than scarring. Ventricular volumes and ejection fraction are within normal range.
--- NOTE | 2019-11-18 14:15 | TREADPHA ---
DX: CHEST PAIN Date of Study: 11/18/2019 Ht: 5 7 Wt: 208 lb 0 oz Consulting Physician: ANJUM MEDICATIONS: NORVASC, ASPIRIN, LOPRESSOR, LOSARTAN HISTORY: 49 YEAR OLD FEMALE WITH HISTORY OF HYPERTENSION, POSITIVE SMOKER. ADMITTED FOR RIGHT NECK AND JAW PAIN. PATIENT DENIES PAIN AT TIME OF TESTING. PHYSICIAL EXAMINATION: RESTING B.P.: 152/84 RESTING H.R.: 65 RESTING EKG: NORMAL PROTOCOL: PHARMACOLOGIC EXERCISE TIME: 3:30 B.P. AT PEAK STRESS: IMPRESSION: LEXISCAN STRESS TEST PERFORMED. CARDIOLITE INJECTED PER PROTOCOL. NOSUPRAVENTRICULAR TACHYCARDIA, NO VENTRICULAR TACHYCARDIA, NO ARRHYTHMIA NOTED. TOLERATED WELL. PLEASE SEE NUCLEAR MEDICINE REPORT. NON-DIAGNOSTIC ELECTROCARDIOGRAM WITH LEXISCAN STRESS.
[2019-11-18 14:16] VITALS: BP 128/86
--- NOTE | 2019-11-18 16:26 | RAD REPORT ---
EXAM DESCRIPTION: US - Abdomen Pelvis Scan US - 11/18/2019 3:54 pm CLINICAL HISTORY: High blood pressure N COMPARISON: Renal Ultrasound-Complete dated 11/05/2019; Rest Stress Cardiac Imaging dated 11/18/2019 FINDINGS: The bilateral kidneys are normal in size, the right measuring 11.2 x 5.0 x 4.5 cm and the left measuring 11.1 x 4.9 x 4.9 cm. Aortic velocity: 97 cm/second Right proximal renal artery: 170 cm/second Right mid renal artery: 99 cm/second Right distal renal artery: 74 cm/second Right renal arcuate artery resistive index: 0.6 Right renal artery / aorta ratio: 1.7 Left proximal renal artery: 293 cm/second Left mid renal artery: 153 cm/second Left distal renal artery: 75 cm/second Left renal arcuate artery resistive index: 0.6 Left renal artery/aorta ratio: 3.0 IMPRESSION: Findings are most compatible with left sided proximal renal artery stenosis.
--- NOTE | 2019-12-01 00:32 | DS ---
Date of Discharge: 11/18/2019 Disposition: Discharged to go home. Physical Examination: HEENT: Unremarkable. Lungs: Clear to auscultation. Heart: Heart sounds normal. Abdomen: Soft, bowel sounds normal. No guarding, rigidity, tenderness, or distention. Extremities: No leg edema. Hospital Course: This is a 49-year-old very pleasant female patient who was admitted to the hospital with high blood pressure and neck pain problem. Please see dictated H and P for more information. Patient came into office with these concerns and after I saw her, decision was made to admit her to [facility]. I was concerned about atypical angina the way she presented to the office. After she w as admitted to the hospital, cardiac enzymes came back negative. Blood work was unremarkable. Cardi ology consultation was obtained and her home medications were continued. We did add losartan/hydroch lorothiazide. Her blood pressure remained normal during this hospitalization after adding this extra medication. Echocardiogram was done, which showed normal ejection fraction, normal echocardiogram. Lexiscan stress test came back negative for stress-induced ischemia. She has not had any problem wi th her blood pressure up until fairly recently, so I did order a renal artery Doppler on her and her renal artery Doppler came back abnormal showing evidence of left renal artery stenosis in the proxima l area. All these findings were discussed with the patient and I have advised her to follow up with metal dresser and I will refer her to metal dresser on an outpatient basis to be seen as soon as fredy richmond for further evaluation and management of this left renal artery stenosis. Final Diagnoses: 1.Atypical angina. 2.Hypertension. 3.Mixed hyperlipidemia. 4.Left renal artery stenosis. Discharge Medications And Instructions: Continue prior home medications as below, 1.Metoprolol succinate 50 mg 1 tablet p.o. daily in morning. 2.Losartan/hydrochlorothiazide 50/12.5 mg 1 tablet p.o. daily in morning. 3.Amlodipine 10 mg 1 tablet daily in evening. 4.Follow up at my office this month as per scheduled appointment. CHAYA/MODL Voice ID: [id number] Report ID: [id number]
== END 2019-11-18 16:31 | disposition home or self-care (01) ==
LOC: 2ND 12:25
PROVIDERS: ADMIT Internal Medicine; ATTEND Internal Medicine
DX: I20.9 Angina pectoris, unspecified (principal); I10 Essential (primary) hypertension; E78.2 Mixed hyperlipidemia; I70.1 Atherosclerosis of renal artery
CPT/HCPCS: 93005; 93017; 93306; 85025; 80048; 36415; 83735; 82550; 84484; 82553; 80053; 93975; 78452; J1650; J2785; A9500; G0379; G0378 ×3

== ENCOUNTER 2019-12-14 11:27 | Inpatient (IN) | payer BC ==
--- OUTSIDE RECORDS SUMMARY | 2019-12-14 11:29 | XMS REPORT ---
:1970 [facility] Address [address] [place] [address] Dr. Phillips [address] [place] [id number] Care Team Providers Name Role Phone Unavailable Unavailable Unavailable Problems This patient has no known problems. Allergies, Adverse Reactions, Alerts This patient has no known allergies or adverse reactions. Medications This patient has no known medications.
[2019-12-14 12:40] LABS: Absolute Lymphocytes (CBC) 2.7 K/uL (0.7-4.9); Basophils % 0.7 % (0-1.3); MPV 8.2 fL (7.6-11.3)
[2019-12-14 12:55] LABS: Albumin 4.1 g/dL (3.4-5.0); Bilirubin Total 0.5 mg/dL (0.2-1.0); Magnesium 1.8 mg/dL (1.8-2.4); Potassium 3.7 mmol/L (3.5-5.1)
[2019-12-14 13:51] LABS: Urine Appearance CLEAR; Urine Bilirubin NEGATIVE (NEG); Urine Blood NEGATIVE (NEG); Urine Color YELLOW; Urine Glucose NEGATIVE (NEG); Urine Protein NEGATIVE (NEG); Urine Specific Gravity <=1.005 (1.005-1.030); Urine Urobilinogen 0.2 mg/dL (0.2-1.0)
[2019-12-14] MEDS ORDERED: VANCOMYCIN/NS 1 gm 1 GM/250 ML BAG IVPB SCH (14:15)
[2019-12-14 14:22] LABS: Urine Bacteria <20 /HPF (<20); Urine Culture Reflex Order NOT NEEDED; Urine RBC <5 /HPF (NONE SEEN)
[2019-12-14] MEDS: MORPHINE 2 MG/ML SYR IV PRN ×2 (15:24→19:24)
[2019-12-14] MEDS: PIPER/TAZO/NS 3.375gm 3.375 GM/100 ML BAG IVPB SCH (15:28)
[2019-12-14] MEDS: VANCOMYCIN 1.75 GM in NA CHLORIDE 0.9% 500 ML IVPB SCH (15:29)
--- NOTE | 2019-12-14 16:16 | RAD REPORT ---
EXAM DESCRIPTION: CT - Abdomen Pelvis W Contrast - 12/14/2019 3:03 pm CLINICAL HISTORY: Abdominal pain. COMPARISON: None. TECHNIQUE: Computed axial tomography of the abdomen and pelvis was obtained. 100 cc Isovue-300 is ad ministered intravenously. Oral contrast was given. All CT scans are performed using dose optimization technique as appropriate and may include automated exposure control or mA/KV adjustment according to patient size. FINDINGS: The liver, spleen, pancreas, adrenals and kidneys appear unremarkable. Cholecystectomy There is no evidence of diverticulitis Mild to moderate anterior subluxation of L3 on L4 3 centimeter low-density mass within enhancing remote abuts the anus. IMPRESSION: 3 centimeter perianal abscess
[2019-12-14] MEDS ORDERED: POTASSIUM CL SA 10 MEQ TAB PO ONE (21:00)
--- NOTE | 2019-12-14 21:46 | CON ---
Date of Consultation: 12/14/2019 Reason For Consultation: Perineal pain, possible abscess. Consulting Physician: Jules Dickerson MD. History Of Present Illness: The patient is a 49-year-old, known to our practice when she came for a well-woman exam about 15 or 18 months ago. Reports that she started to have perineal pain about 3 to 4 days ago, worsened over the past 24 hours since last night. She noted that her pain had gotten mu ch worse and started to have fever and chills. She was seen by Dr. Dickerson in the office today who susp ected perianal or perirectal perineal abscess and consulted me. Denies having any discharge either v aginally. Never had history of any abscesses in the rectal area or the perianal or vulvar areas. No history of any diabetes. She does not report being on her period at this time. No nausea or vomiti ng. History of constipation and hard stools recently. She does recollect having a very hard stool a ssociated with pain in the recent past and since then bowel movements have been harder. In the past she has always had softer bowel movements and never had a history of constipation. She also gives history of some pain medication intake due to all of her recent procedures for her [place] al artery stenosis. Past Medical History: Significant for hypertension and mixed hyperlipidemia, hypertension secondary to renal artery stenosis. Past Surgical History: Cholecystectomy, arthroscopic knee surgery, and bilateral renal artery stent placement. Personal History: She is a smoker and moderate alcohol use on a daily basis. Allergies: WELLBUTRIN AND OXYCODONE, WHICH CAUSE RASH. Medications: The medications that the patient currently is on; she is on antihypertensives, most lik kristina amlodipine. She is on blood thinner. Her current home medications are Plavix, aspirin, hydrochl orothiazide, losartan, and also on amlodipine. She is on atorvastatin and metoprolol. The Plavix is 75 mg and aspirin 81 mg. currently in the hospital, she is on Zosyn and vancomycin. She is on morp lorin for pain and ondansetron for nausea. Review of Systems: As above. No shortness of breath, cough, chest pain. No headaches. Physical Examination: General: No current distress. Vital Signs: 97.1, 69, 129/71, 97% on room air. Her pain level about 7. She is afebrile. Head and Neck: Unremarkable. No thyromegaly. No jugular venous distention. Heart: Regular in rate and rhythm. Lungs: Clear to auscultation. Abdomen: Soft, nondistended, nontender. No hepatosplenomegaly. Extremities: No edema or calf tenderness. Pelvic: No inguinal lymphadenopathy. I did not palpate any tender lymph nodes on pelvic exam. Labi al appeared to be unremarkable. Perineal area slightly erythematous and edema noted. Perianal and p erirectal area unremarkable. Bartholin's gland on the left completely unremarkable, on the right sli ghtly tender, however, no enlargement bilaterally. Periurethral gland, [place]'s glands all negative a nd normal. Vaginal canal completely unremarkable. No drainage. I was unable to examine her complet kristina in the upper genital tract because she had a lot of tenderness during the exam. Perineal area wa s tender, especially to the right. On rectovaginal exam, there was tenderness significantly in the d istal 1/3 of the rectovaginal septum between the anal canal and the vaginal epithelium. In this rect ovaginal space there was a tender area about 2 cm that was indurated and appeared to be slightly fluc tuant, but nothing that I could palpate in the perineal area. This did not appear to extend into the perineal area. No masses were palpable in the distal anal canal as far as I could reach to do the e xam. Laboratory Data: Her white count was 15.8, left-shift, absolute neutrophils 11.2. Her BMP was galileo l. Albumin, globulin, LFTs unremarkable. Her creatinine level 0.91. Imaging: On CT scan, the report showed a 3 cm perianal abscess and on examination of the images, the re was hypodense area consistent with well-defined abscess about 3 cm anterior to the anal canal and posterior to the vaginal canal, very low. Assessment And Plan: 1.Fever most likely from her perianal abscess. 2.Perianal abscess. From my standpoint this is something that is very small. Patient on a blood th inner and probably she definitely needs IV antibiotics at this time. I would continue Zosyn and vanc omycin as started by Dr. Dickerson. She needs a General Surgery consult to discuss the route of access ei ther by transrectal drainage or transvaginal drainage. I would prefer a transrectal route if this is possible as this appears to be much closer to the rectal wall or anal canal wall than to the vaginal lining and the opening it into the vagina can increase the risk of rectovaginal fistula. 3.Constipation. I would start the patient on 2 stool softeners b.i.d. and Metamucil to prevent any further worsening of her pain, possibly could have any anal fissure. 4.Renal artery stenosis and hypertension. She is on 2 blood thinners, baby aspirin and Plavix, whic h are extremely essential for the patient to continue to stay on per Dr. Dickerson as her bilateral renal stents are only 2 weeks old. I would recommend that she has consultation from General Surgery. Linda ent requested Dr. Key. Discussed the plan with Dr. Dickerson and we will reach out to General Surger y to get their input it and plan on treatment. Patient will continue to stay n.p.o. with her IV anti biotics and CBC in the morning. MAEVE/JOSE Voice ID: [id number] Report ID: [id number]
[2019-12-14] MEDS: CODEINE 30MG/APAP 300MG TAB PO PRN (22:11)
[2019-12-14] MEDS: ATORVASTATIN 20 MG TAB PO SCH (22:12)
[2019-12-14] MEDS: AMLODIPINE 10 MG TAB PO SCH (22:12)
[2019-12-14] MEDS: METOPROLOL XL 50 MG TAB PO SCH (22:12)
[2019-12-15] MEDS: PIPER/TAZO/NS 3.375gm 3.375 GM/100 ML BAG IVPB SCH ×3 (00:38→17:11)
[2019-12-15] MEDS: MORPHINE 2 MG/ML SYR IV PRN ×2 (00:38→04:56)
--- NOTE | 2019-12-15 02:50 | HP ---
Date of Admission: 12/14/2019 Chief Complaint: Fever and pain. History Of Present Illness: This is a 49-year-old very pleasant female patient who was doing fine until 3 days ago and she started to have this painful swelling in her perineal region and has been having intermittent fever with this pain. Her symptoms got worse over the period of last 3 days. Today, she went to work. Her called office and we received this message. She was asked to come in to see me. After I evaluated her, decision was made to admit her to the hospital with perineal abscess. Denies any nausea or vomiting. No discharge. No bleeding. Allergies: TO BUPROPION CAUSING ANXIETY PROBLEM AND OXYCODONE CAUSING RASH. Medications: Amlodipine 10 mg daily in the evening, aspirin 81 mg daily, clopidogrel 75 mg p.o. daily, atorvastatin 20 mg p.o. daily, losartan/HCTZ 50/ 12.5 one tablet by mouth daily in the morning, metoprolol succinate 50 mg p.o. 2 times a day. Review of Systems: Constitutional: As mentioned above. GI: As mentioned above. Genitourinary: As mentioned above. All other systems reviewed and negative. Past Medical History: Significant for hypertension, mixed hyperlipidemia, renal artery stenosis. Past Surgical History: The patient had bilateral renal artery stent placed on November 30, 2019 and in the past she had cholecystectomy and knee surgery. Family History: Father: COPD, coronary artery disease, hypertension. Mother: Lung cancer and COPD. Sister with asthma. Social History: She used to smoke, but as of about 2 weeks ago she quit smoking. Use of alcohol occasional. Physical Examination: Vital Signs: At office today, when she came in, blood pressure 133/86, temperature 98.1, pulse 86, respiratory rate 15, weight 209 pounds, height 67 inches. General: Awake, alert, oriented, not in distress. HEENT: Head atraumatic, normocephalic. Conjunctivae nonerythematous. Sclerae white. Mouth, no thrush or edema noted. Ears/Nose, no mass, lesion, discharge noted. Neck: Supple. No JVD, lymph nodes, bruit, thyromegaly noted. Lungs: Bilateral good equal air entry. Clear to auscultation. No rhonchi. No rales. Heart: Normal heart sounds, no murmur or gallop. Abdomen: Patient has significant right lower quadrant tenderness, otherwise abdomen is soft. Bowel sounds normoactive. No distention. No hepatosplenomegaly. No bruit. Extremities: No leg edema. No calf tenderness. Skin: No rash, ulcer, cellulitis. Lymphatics: No lymph node enlargement in neck, supraclavicular, infraclavicular region. Neuro: No focal neurological deficit. Chest: Unremarkable. External Genitalia: The exam was performed in presence of office staff and it revealed approximately 3 cm swollen, very tender area between the posterior vaginal wall and rectum and the perineum region. There was no discharge, no bleeding. Right labia majora was mildly swollen. Rectal: Deferred. Laboratory Data: White count 15.8, hemoglobin 14.1. Sodium 137, potassium 3.7 , chloride 101, bicarb 29, BUN 14, creatinine 0.91, glucose 92. Liver function tests unremarkable. Procalcitonin less than 0.05. CAT scan of the abdomen and pelvis shows approximately 3 cm perianal abscess. Impression: 1. Perineal abscess. 2. Renal artery stenosis, bilateral, status post renal artery stent. 3. Mixed hyperlipidemia. 4. Hypertension. Plan: Admit patient to the hospital for further evaluation and management of this problem. Patient is appropriate for inpatient and is expected to spend 2 midnights in the hospital. We will go ahead and continue home medications per order. Give pain medications per order. Empiric IV antibiotics, vancomycin and Zosyn will be started. 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 Nicolas, I did discuss details with her before admission and after she evaluated her and she has not recommended any open drainage type of procedure and General Surgery consultation was requested from Dr. Key to see if we can perform any percutaneous drainage and Dr. Nicolas has discussed details with Dr. Key. I will keep her n.p.o. after midnight. I will see her tomorrow morning. CHAYA/MODL Voice ID: [id number]
[2019-12-15 05:56] LABS: Potassium 4.3 mmol/L (3.5-5.1)
[2019-12-15] MEDS: CODEINE 30MG/APAP 300MG TAB PO PRN (07:08)
[2019-12-15] MEDS: CLOPIDOGREL 75 MG TABLET PO SCH ×2 (09:00→21:23)
[2019-12-15] MEDS: ASPIRIN EC 81 MG TAB PO SCH ×2 (09:00→21:23)
[2019-12-15] MEDS: METOPROLOL XL 50 MG TAB PO SCH ×2 (09:00→21:23)
[2019-12-15] MEDS: LOSARTAN/HCTZ 50-12.5 PO SCH (09:00)
[2019-12-15] MEDS: VANCOMYCIN 1.75 GM in NA CHLORIDE 0.9% 500 ML IVPB SCH (09:39)
[2019-12-15] MEDS: D5 0.9 NS 1,000 ML IV SCH ×2 (09:39→21:13)
[2019-12-15] MEDS ORDERED: LIDOCAINE 2% MPF 5 ML VIAL ONE (09:49)
[2019-12-15] MEDS ORDERED: MIDAZOLAM HCL 2 MG/2 ML INJ ONE (09:49)
[2019-12-15] MEDS ORDERED: dexAMETHasone 10 MG/ML VIAL ONE (09:49)
[2019-12-15] MEDS ORDERED: FENTANYL CITR 100 MCG/2 ML ONE (09:49)
[2019-12-15] MEDS ORDERED: propofoL 200 MG/20 ML VIAL IV ONE (09:49)
[2019-12-15] MEDS ORDERED: Ringers Lactate 1,000 ML IV ONE (10:07)
[2019-12-15] MEDS ORDERED: BUPIVACAINE 0.25% PF 10 ML VIAL ONE (10:13)
[2019-12-15] MEDS ORDERED: KETOROLAC 30 MG/ML INJ ONE (10:59)
--- NOTE | 2019-12-15 11:05 | P.BOP ---
Preoperative diagnosis: Perineal abscess Postoperative diagnosis: same plus Perianal fissure Primary procedure: EUA, Anoscopy, Rigid proctoscopy, Incision and drainage of PERINEAL ABSCESS Secondary procedure: Incisional biopsy of PERIANAL fissure Estimated blood loss: <10cc Specimen: anterior PERINEAL abscess, anterolateral PERINEAl fissure Findings: pus Anesthesia: General Complications: None Transferred to: Recovery Room Condition: Good
--- NOTE | 2019-12-15 11:11 | CON ---
Date of Consultation: 12/14/2019 This patient was seen in the floor on 12/14/2019. Diagnosis: Perineal abscess. History Of Present Illness: This is a case of a 49 years old patient with multiple medical problems, including hypertension, recently has renal stents for control of hypertension, right now on Plavix a nd aspirin, but she developed a perineal abscess of unknown origin. Patient was seen previously by ellen ferrari primary doctor and even the components engineer who contacted me, since they feel more comfortable me doi ng the case to the close proximity also to the perianal region. She does not remember any trauma. S he does not remember any injuries in that area. No dysuria, hematuria, hematochezia or melena. No r ecent traveling out of the country. No family member sick at home. Past Medical History: Includes hypertension, hyperlipidemia, and renal artery stenosis. Surgical History: Include bilateral renal artery stent placed on November 30. Also, patient has his tory of knee surgeries and gallbladder removal. Family History: Includes coronary artery disease, lung disease. Social History: She drinks alcohol occasionally. She has not smoked in 2 weeks. Review of Systems: Ten points otherwise unremarkable. No previous colonoscopies. Physical Examination: General: Patient is awake and alert. HEENT: Pupils are equal and reactive, anicteric. Neck: Supple. Chest: Clear. Abdomen: Soft and depressible. No guarding or rebound. Over the area of the perineal region, patidanielle nt has an area of tenderness, hard to palpate the edges since very tender and she does not want to be touched by components engineer previously during the gynecological evaluation. The area of perianal region shows no masses. 15.8. CAT scan of the abdomen and pelvis interpreted by Dr. Alarcon as 3 cm perianal abscess. Assessment: 49 years old patient comes to us with a perineal abscess, although the CAT scan, put it as a perianal abscess. She understands the difference between 2 of them, anyway we are going to do t vonda examination under anesthesia, anoscopy, proctoscopy, incision and drainage of perineal abscess wit h benefits, alternatives, and risks including, but not limited to infection, bleeding, damage to oma cent structures as complication, recurrence, UT, and even . She also understands this may not r elieve the symptoms. She might need more than one surgical intervention. She does understand she wi ll require wound care. ABBEY/JOSE Voice ID: [id number] Report ID: [id number]
[2019-12-15] MEDS ORDERED: BUPIVACAINE 0.5% PF 10 ML VIAL ONE (11:20)
[2019-12-15] MEDS: HYDROMORPHONE HCL 1 MG/ML INJ ONE ×2 (11:48→11:58)
[2019-12-15] MEDS ORDERED: ONDANSETRON 4 MG/2 ML VIAL ONE (11:51)
[2019-12-15] MEDS: HYDROMORPHONE HCL 2 MG/ML inj ONE ×5 (12:05→12:30)
[2019-12-15] MEDS: ONDANSETRON 4 MG/2 ML VIAL IV PRN ×2 (15:20→22:19)
[2019-12-15] MEDS: ATORVASTATIN 20 MG TAB PO SCH (21:12)
[2019-12-15] MEDS: AMLODIPINE 10 MG TAB PO SCH (21:12)
[2019-12-15] MEDS ORDERED: PANTOPRAZOLE 40 MG INJ IVP ONE (21:21)
[2019-12-15] MEDS ORDERED: SODIUM CHLORIDE 0.9% 10ML INJ IV PRN (21:21)
[2019-12-15] MEDS: MAGNES/ALUMIN/SIMET 30ML UCUP PO PRN (21:30)
--- NOTE | 2019-12-16 00:08 | PN ---
Date of Progress Note: 12/15/2019 Subjective: Patient was seen this morning for followup. No new complaints or problems reported by jaelyn lauradanny, lying in bed, not in any distress. Pain was under good control with oral and IV pain medicat ion when I saw her this morning. Objective: Vital Signs: Reviewed. HEENT: Unremarkable. Lungs: Clear to auscultation. Heart: Heart sounds normal. Abdomen: Soft, bowel sounds normal. No guarding, rigidity, tenderness, or distention. Extremities: No leg edema. Laboratory Data: Sodium 139, potassium 4.3, chloride 107, bicarb 27, BUN 11, creatinine 0.84, glucos e 92. Impression: 1.Perineal abscess. 2.Hypertension. 3.Mixed hyperlipidemia. 4.Bilateral renal artery stenosis. Plan: We will continue current medications. Continue IV Zosyn, IV vancomycin. Current pain medicat ion. Home medications. Order was written to hold her antihypertensive medication if systolic blood pressure remains less than 120. The patient was n.p.o. this morning for surgical intervention, which was done by Dr. Key and he performed incision and drainage, obtained approximately 7 mL of pus and I did discuss details with him. I will see her tomorrow for followup, possible discharge to go [facility] tomorrow depending on her condition. Wound culture was sent by Dr. Key today and we will follow up on that result. CHAYA/MODL Voice ID: [id number] Report ID: [id number]
[2019-12-16] MEDS: PIPER/TAZO/NS 3.375gm 3.375 GM/100 ML BAG IVPB SCH (00:11)
[2019-12-16] MEDS: CODEINE 30MG/APAP 300MG TAB PO PRN ×4 (00:11→15:50)
[2019-12-16] MEDS: VANCOMYCIN 1.75 GM in NA CHLORIDE 0.9% 500 ML IVPB SCH ×2 (03:48→21:36)
[2019-12-16] MEDS: MAGNES/ALUMIN/SIMET 30ML UCUP PO PRN ×4 (04:40→21:28)
[2019-12-16 06:11] LABS: Absolute Lymphocytes (CBC) 1.3 K/uL (0.7-4.9); Basophils % 0.2 % (0-1.3); Hematocrit 41.4 % (36.0-45.0); MPV 8.4 fL (7.6-11.3)
[2019-12-16 06:17] LABS: Magnesium 2.3 mg/dL (1.8-2.4); Potassium 4.6 mmol/L (3.5-5.1)
[2019-12-16] MEDS: ONDANSETRON 4 MG/2 ML VIAL IV PRN ×3 (09:02→21:32)
[2019-12-16] MEDS: Levofloxacin 750mg IV 750 MG/150 ML BAG IV SCH (09:03)
[2019-12-16] MEDS: CLOPIDOGREL 75 MG TABLET PO SCH (09:03)
[2019-12-16] MEDS: METOPROLOL XL 50 MG TAB PO SCH ×2 (09:04→21:31)
[2019-12-16] MEDS: LOSARTAN/HCTZ 50-12.5 PO SCH (09:04)
[2019-12-16] MEDS: ASPIRIN EC 81 MG TAB PO SCH (09:04)
[2019-12-16] MEDS ORDERED: MAGNESIUM HYDROXIDE 8% 30 ML PO ONE (10:04)
[2019-12-16] MEDS: PANTOPRAZOLE INJ 80 MG in NA CHLORIDE 0.9% 250 ML IV SCH (11:09)
--- NOTE | 2019-12-16 14:24 | PN ---
Date of Progress Note: 12/16/2019 Subjective: Patient was seen this morning for followup. Her pain is in good control after surgery w ith pain medications and intensity of the pain is much better than before. Yesterday evening, she st arted to have some throat problem and Maalox and IV Protonix was ordered, which has provided her sea inal relief she reports. The way she describes is as if she has some kind of discomfort in the throa t with constant burning sensation and it tends to get worse when she tried to drink anything. No dys phagia. Patient reports having heartburn, indigestion, requiring to take [id number] medication like Tums or Rolaids may be only 2 to 3 times a year. Objective: Vital Signs: Reviewed. HEENT: Unremarkable. Lungs: Clear to auscultation. Heart: Sounds normal. Abdomen: Soft. Bowel sounds normal. No guarding, rigidity, tenderness, or distention. Extremities: No leg edema. Patient was examined in presence of her and nurse. The perineal area shows presence of iodoform wound pack. No surrounding induration or tenderness in the surround ing region. No discharge. No bleeding. Laboratory Data: White count 16.8 this morning, hemoglobin 13.8, platelets 281, sodium 141, potassiu m 4.6, chloride 107, bicarb 27, BUN 12, creatinine 0.89, glucose 116. Impression: 1.Perineal abscess. 2.Hypertension. 3.Mixed hyperlipidemia. 4.Bilateral renal artery stenosis. Plan: We will continue vancomycin that currently she is on. Considering increase in white count, we will stop her Zosyn and start Levaquin. We will repeat blood work tomorrow. Depending on that, we will decide whether we need to make any further changes in antibiotics or not. Wound culture is pend ing. What it appears the patient has gastroesophageal reflux disease with esophagitis type of sympto ms. She had marginal relief with IV Protonix and Maalox. We will continue Maalox per order and star t her on IV Protonix drip today at least for 24 hours and I will see her tomorrow for followup. I randle ve advised nursing staff to teach patient's how to do wound care dressing changes and let the patient's do the dressing changes today and tomorrow under supervision of nurse, so that way he can continue to provide dressing changes upon discharge from the hospital as per the patient's pr eference. Possible discharge either tomorrow or day after tomorrow depending on her condition. CHAYA/MODL Voice ID: [id number] Report ID: [id number]
[2019-12-16 15:57] VITALS: BMI 32.4
[2019-12-16] MEDS: AMLODIPINE 10 MG TAB PO SCH (21:29)
[2019-12-16] MEDS: ATORVASTATIN 20 MG TAB PO SCH (21:29)
[2019-12-16 23:34] VITALS: O2SAT 93
--- NOTE | 2019-12-17 00:50 | PN ---
Diagnoses: 1.Perineal abscess. 2.Perianal fissure. History: Patient is doing well. No complaint. Abdomen is nontender, perineal area surgical area is intact. Laboratory Data: WBC count of 16. Plan: We continued the packing. 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 T here is a small cavity in the perineal region. No evidence of fluctuance or crepitus in the rest of the perineal region. No evidence of cellulitis in the rest of the perineal region, just t o that area. We expect today WBC count to be a little bit higher due to the surgical intervention, b y tomorrow we suspected that to be lower. Dr. Dickerson is in-charge of the antibiotics at this moment an d we agree with his assessment. From the surgical standpoint, we explained to the patient, the need of packing daily, she may take a shower with dressings off. Followup in my office in 1 week. Call f or appointment [phone]. Cultures were sent, waiting for the final report, also biopsy of the perine al region. In this case, from the fistula, but no evidence of malignancy. The patient fe els comfortable with dressing changes. She understands I will be out of town next week. She underst ands the rest of the surgeons around that will be available if she needs some help, she is okay. She is going to follow me up this Thursday Thursday after. If she has any problem with this befo re that or fevers she was asked to come to the ER immediately. ABBEY/JOSE Voice ID: [id number] Report ID: [id number]
[2019-12-17] MEDS: PANTOPRAZOLE INJ 80 MG in NA CHLORIDE 0.9% 250 ML IV SCH (01:38)
[2019-12-17] MEDS: CODEINE 30MG/APAP 300MG TAB PO PRN (02:59)
[2019-12-17] MEDS: MAGNES/ALUMIN/SIMET 30ML UCUP PO PRN (02:59)
[2019-12-17 06:28] LABS: Absolute Lymphocytes (CBC) 2.5 K/uL (0.7-4.9); Basophils % 0.3 % (0-1.3); Hematocrit 37.5 % (36.0-45.0); Lymphocytes % 20.8 % (15.3-44.8); MPV 8.6 fL (7.6-11.3); Potassium 3.8 mmol/L (3.5-5.1); RBC Red Blood Cell Count 4.23 M/uL (3.86-4.86)
[2019-12-17] MEDS: ASPIRIN EC 81 MG TAB PO SCH (08:35)
[2019-12-17] MEDS: METOPROLOL XL 50 MG TAB PO SCH (08:35)
[2019-12-17] MEDS: LOSARTAN/HCTZ 50-12.5 PO SCH (08:35)
[2019-12-17] MEDS: CLOPIDOGREL 75 MG TABLET PO SCH (08:35)
[2019-12-17] MEDS: Levofloxacin 750mg IV 750 MG/150 ML BAG IV SCH (08:36)
[2019-12-17 08:41] VITALS: BP 122/68
[2019-12-17 10:03] VITALS: TEMP 97.4
[2019-12-17] MEDS ORDERED: VANCOMYCIN 2 GM in NA CHLORIDE 0.9% 500 ML IVPB SCH (15:00)
--- NOTE | 2019-12-17 20:13 | DS ---
Date of Discharge: 12/17/2019 Disposition: Discharged to go home. Physical Examination: HEENT: Unremarkable. Lungs: Clear to auscultation. Cardiac: Heart sounds normal. Abdomen: Soft, bowel sounds normal. No guarding, rigidity, tenderness, or distention. Extremities: No leg edema. Discharge Medications And Instructions: 1.Topical dressing to perineal abscess area on a daily basis as per instruction from Dr. Key, juhi nd follow up with Dr. Key as per his instruction, which is 12/26/2019. 2.Follow up at my office as per her appointment which is later part of this month. 3.Continue all prior home medications which is aspirin, clopidogrel and atorvastatin as you were kaylee ing before. 4.Check your blood pressure before taking your blood pressure medications and do not take the dose o f your amlodipine and metoprolol if your systolic blood pressure is this less than 120 and do not kaylee e a dose of your losartan/hydrochlorothiazide if your systolic blood pressure is less than 140. 5.Take Levaquin 500 mg p.o. daily for 10 days, sucralfate oral suspension 1 g, which is 30-60 minute s before each meal, and at bedtime. 6.Pantoprazole 40 mg 2 times a day and all this prescriptions [facility] 7.Tylenol with Codeine No.3 p.o. q.6 hours p.r.n. for pain and prescription written for 15 tablets. No refill. Laboratory Data: Labs done during this hospitalization, her white count upon admission was 15.8 with hemoglobin 14.1, platelets 298. This was on 12/14/2019. On 12/16/2019, white count was 16.8, hemog lobin 13.8, platelets 281, and today white count 12.1, hemoglobin 12.6, platelets 249. Chemistry tod ay sodium 142, potassium 3.8, chloride 110, bicarb 29, BUN 12, creatinine 0.82, glucose 82. Wound cu lture grew E coli and it is sensitive to Levaquin that the patient is to continue. Hospital Course: This is a 49-year-old pleasant female patient who was admitted to the hospital with fever and pain. Please see dictated H and P for more information. Patient came into office with th is complaints of pain in the perineal region along with fever and after she was evaluated she was adm itted to the hospital with diagnosis of perineal abscess. After she was admitted to the hospital, ro utine blood work was done. CAT scan of abdomen and pelvis done which revealed about 3 cm perineal ab scess. Dr. Nicolas and Dr. Key was consulted. Patient was started on Zosyn and vancomycin and Dr. Key performed incision and drainage and obtained approximately 7 cc of pus which was sent f or culture and culture result came back today growing E coli. After about 48 hours of IV vancomycin and Zosyn, her white count did not improve and in fact went up slightly, which was noted yesterday an d at that time, we decided to discontinue IV Zosyn and started her on IV Levaquin 750 mg daily. She received 1 dose yesterday morning and this morning, white count came down to 12. The patient will ge t second dose of IV Levaquin today and then we will plan to discharge her with oral Levaquin as menti oned above. As of day before yesterday, she started to have some throat discomfort with burning sens ation in the throat, which is more or less continuous feeling, tends to get worse when she eats or dr inks anything. She was given IV Protonix 1 dose day before yesterday and Maalox was started and as o f yesterday we started her on continuous IV Protonix drip. This morning when I saw her, she still co ntinues to have burning sensation in her throat which has not changed any since yesterday. There is no evidence of any oral candidiasis. I have discussed details with the patient and informed her that I would like for her to continue Protonix 40 mg p.o. twice a day and we will add sucralfate as per p rescription and if this does not improve over period of time, then she will need to consider doing EG D for diagnostic purpose only as she is not going to be able to discontinue her aspirin and clopidogr el at this point considering the recent procedure of bilateral renal artery stent placement. So we h ope that over period of time her condition will improve and will not require any upper endoscopy type of procedure. Patient is ambulating well. Pain is under much better control and her has le arned how to provide dressing changes and he will help her with the daily dressing changes as per ins truction from Dr. Key. Discharge Diagnoses: 1.Perineal abscess. 2.Renal artery stenosis, bilateral, status post renal artery stent. 3.Gastroesophageal reflux disease with esophagitis. 4.Mixed hyperlipidemia. 5.Hypertension. CHAYA/MODL Voice ID: [id number] Report ID: [id number]
--- NOTE | 2019-12-27 20:35 | OP ---
Date of Procedure: 12/15/2019 Surgeon: Pb Key MD Diagnosis: Perianal abscess. Postoperative Diagnoses: Perianal abscess. Procedure: Examination under anesthesia, anoscopy, rigid proctoscopy, incision and drainage of perin eal abscess, and incisional biopsy of perianal fissure. Estimated Blood Loss: Less than 10 mL. Specimen: Anterior perineal abscess and anterolateral perianal fissure. Anesthesia: General plus local. Indications: This is the case of a female who comes to us with an abscess in the perineal area, init ially evaluated also by the primary doctor and a teller supervisor, they asked me to help in the case due to the location. The suspect may have some perianal and perineal components. The patient fully expl ained the benefits and alternatives of EUA, anoscopy, rigid proctoscopy, incision and drainage of per ineal abscess, which include, but not limited to infection, bleeding, damage to adjacent structures, anesthesia complication, nonhealing wound, VT, and even . She also understands this may not rel ieve the symptoms. She might need more than one surgical intervention. She may require wound care. She signed a consent. The area of concern was marked by me and the patient in the holding room. Description Of Procedure: Patient was brought to the operating room, placed in supine position. Ane sthesia was done without complication. The patient was placed in lithotomy position with proper prot ection. Perineal and perianal area were prepped and draped in a sterile fashion. A time-out was ofe led. Rectal examination was done followed by a rigid proctoscopy all the way about to 15 cm. We not iced, the patient to have a perianal just in the area of the dentate line a fissure. Etiology of gabrielle t is unknown, may be that she has a fistula in the past although right now cannot find opening to con nect to the abscess, which is more in the perineal. We put an anoscope, once again same findings, th ere was a window in the side to allow better visualization of the perianal wall. At that moment, I i dentified the area of the abscess, I placed an 18-gauge needle in the area, localized it, and then jyotsna ke an incision in that area and that was in the perineal. The fissure was found in the perianal. Th e abscess was obtained, significant amount of pus was obtained. The area was irrigated, hemostasis o btained and packed with wet-to-dry dressing. Concerning the perianal fissure since it is an ulcer. I cannot find the tract of the fistula, but I did a biopsy of that area to make sure there is no ricky gnancy there. Patient tolerated the procedure well. Hemostasis obtained. The area was covered and patient was sent to recovery room in stable condition. Sponge count and instrument counts were corre ct. ABBEY/MODL Voice ID: [id number] Report ID: [id number]
== END 2019-12-17 10:47 | disposition home health service (06) | DRG 603 ==
LOC: 4TH 11:27
PROVIDERS: ADMIT Internal Medicine; ATTEND Internal Medicine
PROC: 0DBQ8ZX Excision of Anus, Via Natural or Artificial Opening Endoscopic, Diagnostic (ICD-10-PCS; 2019-12-15)
PROC: 0H99XZX Drainage of Perineum Skin, External Approach, Diagnostic (ICD-10-PCS; principal; 2019-12-15 09:30)
DX: L02.215 Cutaneous abscess of perineum (principal); B96.20 Unspecified Escherichia coli [E. coli] as the cause of diseases classified elsewhere; K60.2 Anal fissure, unspecified; I70.1 Atherosclerosis of renal artery; K21.0 Gastro-esophageal reflux disease with esophagitis; E78.2 Mixed hyperlipidemia; I10 Essential (primary) hypertension
CPT/HCPCS: 36415; 74177; 80048; 80053; 80202; 81001; 83735; 84145; 84703; 85025; 87070; 87075; 87077; 87186; 87205; 88305; C9113; J1100; J1170; J2250; J2270; J2405; J2543; J2704; J3010; J7030; J7040; J7042; J7120; Q9967